=== PATIENT | female | born 1950 | race Asian ===

== ENCOUNTER 2016-12-26 07:00 | Outpatient (RCR) | payer OTHER | END 2017-01-25 | disposition home or self-care (01) | LOC: PTY 07:00 | DX: S42.202A Unspecified fracture of upper end of left humerus, initial encounter for closed fracture (principal); X58.XXXA Exposure to other specified factors, initial encounter; Y92.9 Unspecified place or not applicable; Y99.8 Other external cause status ==

== ENCOUNTER 2017-01-27 08:07 | Outpatient (RCR) | payer OTHER | END 2017-02-24 | disposition home or self-care (01) | LOC: PTY 08:07 | DX: S42.202D Unspecified fracture of upper end of left humerus, subsequent encounter for fracture with routine healing (principal); S42.292D Other displaced fracture of upper end of left humerus, subsequent encounter for fracture with routine healing ==